=== PATIENT | female | born 1930 | race Caucasian/White ===

== ENCOUNTER 2020-08-19 10:04 | Emergency (ER) | payer MEDICARE ==
[~2020-08-19] VITALS: Ht 162.6 cm; Wt 79.4 kg
[~2020-08-19 10:04] MED LIST: BUSPIRONE HCL10 MG PO; CAPTOPRIL HCTZ PO; LOVASTATIN10 MG PO; MEDI-LYTE TABL1 EACH PO; SYNTHROID25 MCG PO; VERAPAMIL ER120 MG PO
[2020-08-19] MEDS ORDERED: TETANUS/DIPHTHERIA TOX ADULT 0.5 ML SYR IM ONE (10:15)
[2020-08-19] MEDS ORDERED: TETANUS/DIPHTHERIA TOX ADULT 0.5 ML SYR ONE (10:20)
== END 2020-08-19 10:53 | disposition home or self-care (01) ==
LOC: ER 10:40
DX: S51.811A Laceration without foreign body of right forearm, initial encounter (principal); W22.09XA Striking against other stationary object, initial encounter; Y93.01 Activity, walking, marching and hiking; Y92.008 Other place in unspecified non-institutional (private) residence as the place of occurrence of the external cause; F03.90 Unspecified dementia, unspecified severity, without behavioral disturbance, psychotic disturbance, mood disturbance, and anxiety
CPT/HCPCS: 90471; 90714; 99282

== ENCOUNTER 2021-10-27 17:27 | Inpatient (IN) | payer MEDICARE ==
[~2021-10-27] VITALS: Ht 160 cm; Wt 70.8 kg
[2021-10-27] MEDS ORDERED: HYDROCODONE/APAP 5MG-325MG TAB PO ONE (18:00)
[2021-10-27] MEDS ORDERED: TETANUS/DIPHTHERIA TOX ADULT 0.5 ML SYR IM ONE (18:00)
[2021-10-27] MEDS ORDERED: ACETAMINOPHEN-1 EAC4 PO ×2 (19:05→19:08)
[2021-10-27] MEDS ORDERED: FENTANYL CITRATE/PF 100MCG/2 ML INJ IV ONE (19:45)
[2021-10-27] MEDS ORDERED: IBUPROFEN600 MG PO (20:01)
[2021-10-27] MEDS ORDERED: ONDANSETRON HCL INJ 2MG/ML 2ML 2 MG/ML VIAL IV PRN (20:15)
[2021-10-27] MEDS ORDERED: SODIUM CHLORIDE FLUSH 10 ML SYR INJ PRN (20:15)
[2021-10-27] MEDS: HYDROMORPHONE 1MG/1ML INJ IV PRN (22:31)
[2021-10-27] MEDS ORDERED: DIVALPROEX SODIUM 250 MG TAB...DR PO ONE (22:35)
[2021-10-28] MEDS: HYDROCODONE/APAP 5MG-325MG TAB PO PRN ×4 (00:27→14:32)
[2021-10-28] MEDS: HYDROMORPHONE 1MG/1ML INJ IV PRN (03:44)
[2021-10-28] MEDS ORDERED: VERAPAMIL HCL 120 MG TABSR PO ONE (04:30)
[2021-10-28] MEDS ORDERED: CLONIDINE HCL 0.1 MG TAB PO ONE (04:30)
[2021-10-28 07:07] LABS: BASOPHILS # (AUTO) 0.1 (0.0-0.1); BASOPHILS % 0.4 % (0.0-1.0); EOSINOPHILS % 0.1 % (0.0-6.0); HEMATOCRIT 42.4 % (34.2-44.1); HEMOGLOBIN 14.5 g/dL (12.0-16.0); LYMPHOCYTES # (AUTO) 1.2 (1.0-3.2); LYMPHOCYTES % 9.7 % (18.0-39.1); MEAN CORPUSCULAR HEMOGLOBIN 28.9 pg (28-32); MEAN CORPUSCULAR HGB CONC 34.2 g/dL (31-35); MEAN CORPUSCULAR VOLUME 84.6 fL (81-99); MONOCYTES # (AUTO) 1.1 (0.2-0.8); NEUTROPHILS # (AUTO) 9.9 (2.1-6.9); NEUTROPHILS % 79.7 % (38.7-80.0); PLATELET COUNT 311 x10e3/uL (140-360); RED BLOOD COUNT 5.01 x10e6/uL (3.6-5.1); RED CELL DISTRIBUTION WIDTH 16.1 % (11.7-14.4)
[2021-10-28 07:23] LABS: ALBUMIN 3.5 g/dL (3.5-5.0); ALBUMIN/GLOBULIN RATIO 0.9 (0.8-2.0); ANION GAP 17.6 mmol/L (8-16); CALCIUM 9.2 mg/dL (8.4-10.2); CREATININE, SERUM 1.75 mg/dL (0.57-1.11); POTASSIUM 4.6 mmol/L (3.5-5.1)
[2021-10-28 07:40] LABS: CLARITY,URINE CLEAR (CLEAR); COLOR,URINE YELLOW (YELLOW); KETONES,URINE NEGATIVE (NEGATIVE); LEUKOCYTE ESTERASE ,URINE NEGATIVE (NEGATIVE); NITRITE,URINE NEGATIVE (NEGATIVE); PROTEIN,URINE DIPSTICK NEGATIVE (NEGATIVE); URINE UROBILINOGEN 0.2 mg/dL (0.2 - 1)
[2021-10-28 07:56] LABS: BACTERIA,URINE RARE /HPF; RBC,URINE 0-5 /HPF (0-5); WBC,URINE (MAN) 0-5 /HPF (0-5)
[2021-10-28 11:18] VITALS: BP 177/88
[2021-10-28 12:31] VITALS: BP 145/74
[2021-10-28 13:18] VITALS: BP 145/74
== END 2021-10-28 15:36 | disposition home or self-care (01) | DRG 563 ==
LOC: ER 17:42 → ERHOLD 20:13 → MED/SURG 10-28 11:10
DX: S42.291A Other displaced fracture of upper end of right humerus, initial encounter for closed fracture (principal); W18.30XA Fall on same level, unspecified, initial encounter; Y92.009 Unspecified place in unspecified non-institutional (private) residence as the place of occurrence of the external cause; S09.90XA Unspecified injury of head, initial encounter; F03.90 Unspecified dementia, unspecified severity, without behavioral disturbance, psychotic disturbance, mood disturbance, and anxiety; I10 Essential (primary) hypertension; M81.0 Age-related osteoporosis without current pathological fracture
CPT/HCPCS: 0223U; 36415; 51700; 70450; 80053; 81001; 85025; 90471; 90714; 99285; J1170; J2405; J3010